=== PATIENT | male | born 1965 | race African-American/Black ===

== ENCOUNTER 2017-07-18 14:48 | Emergency (ER) | payer SELFPAY ==
[2017-07-18] MEDS ORDERED: Adacel (T-DAP) 0.5 ML VIAL ONE (15:13)
[2017-07-18] MEDS ORDERED: Lidocaine 4% Cream 5 GM TUBE w/ Tegaderm ONE (15:19)
[2017-07-18] MEDS ORDERED: HYDROcodone/Acetaminophen 10/325 mg Tablet ONE (15:46)
[2017-07-18] MEDS ORDERED: Bacitracin Zinc 1 Packet ONE (16:59)
--- NOTE | 2017-07-18 17:31 | RAD ---
RIGHT HAND THREE VIEWS: 07/18/2017 HISTORY: The patient reports jamming finger over a week ago. The patient has swelling to the ring finger. Op en wound around ring noted. FINDINGS: There are several tiny metallic foreign bodies within the subcutaneous soft tissues, predominantly in a volar location, involving the base of the right ring finger. There is prominent subcutaneous soft tissue swelling at the level of the proximal interphalangeal joint of the ring finger. No definite osseous destruction is appreciated, and there is no fracture or dislocation. No other osseous abnorm ality. IMPRESSION: 1. Prominent subcutaneous soft tissue swelling at the level of the proximal interphalangeal joint, r ight ring finger. In addition, there are several tiny metallic foreign bodies within the subcutaneou s soft tissues at the mid portion and base of the right ring finger. 2. No acute osseous abnormality is visualized. POS: [facility]
== END 2017-07-18 17:19 | disposition home or self-care (01) ==
LOC: ERS 14:48
DX: L02.511 Cutaneous abscess of right hand (principal); F32.9 Major depressive disorder, single episode, unspecified; F17.210 Nicotine dependence, cigarettes, uncomplicated; W49.04XA Ring or other jewelry causing external constriction, initial encounter
CPT/HCPCS: 90471; 90715